=== PATIENT | male | born 1955 | race African-American/Black ===

== ENCOUNTER 2017-07-15 22:00 | Emergency (ER) | payer MEDICARE, BC ==
[~2017-07-15] VITALS: Ht 177.8 cm; Wt 111.0 kg
[2017-07-16] MEDS ORDERED: KETOROLAC 60MG/2ML VIAL IM ONE
[2017-07-16 01:57] VITALS: BP 135/77
== END 2017-07-16 02:00 | disposition home or self-care (01) ==
LOC: ER 22:12
DX: M54.5 Low back pain (principal); I10 Essential (primary) hypertension; F31.9 Bipolar disorder, unspecified; X50.9XXA Other and unspecified overexertion or strenuous movements or postures, initial encounter; Y93.89 Activity, other specified; Y92.091 Bathroom in other non-institutional residence as the place of occurrence of the external cause; Y99.8 Other external cause status
CPT/HCPCS: 82962; 96372; 99283; J1885

== ENCOUNTER 2017-08-07 13:49 | Emergency (ER) | payer MEDICARE, BC ==
[~2017-08-07] VITALS: Ht 180.3 cm; Wt 110.0 kg
[2017-08-07 15:25] VITALS: BP 124/70
== END 2017-08-07 15:27 | disposition home or self-care (01) ==
LOC: ER 14:12
DX: S83.91XA Sprain of unspecified site of right knee, initial encounter (principal); M25.461 Effusion, right knee; I10 Essential (primary) hypertension; X58.XXXA Exposure to other specified factors, initial encounter; Y93.89 Activity, other specified; Y92.89 Other specified places as the place of occurrence of the external cause; Y99.8 Other external cause status
CPT/HCPCS: 73562; 99284